=== PATIENT | female | born 1940 | race Caucasian/White ===

== ENCOUNTER 2023-01-28 07:13 | Day surgery (SDC) | payer MEDICARE ==
[2023-01-26 09:40] LABS: BASOPHILS % (AUTO) 0.6 % (0-1); EOSINOPHILS # (AUTO) 0.1 X10'3 (0-0.9); EOSINOPHILS % (AUTO) 1.4 % (0-6); HEMATOCRIT 41.8 % (35.0-45.0); HEMOGLOBIN 13.9 g/dl (12.0-16.0); LYMPHOCYTES # (AUTO) 1.8 X10'3 (1.1-4.8); LYMPHOCYTES % (AUTO) 23.9 % (21-51); MEAN CORPUSCULAR HEMOGLOBIN 30.7 PG (27.0-31.0); MEAN CORPUSCULAR HGB CONC 33.3 g/dL (33.0-36.5); MEAN PLATELET VOLUME 7.9 FL (7.4-10.4); MONOCYTES # (AUTO) 0.8 X10'3 (0-0.9); MONOCYTES % (AUTO) 10.2 % (2-12); NEUTROPHILS # (AUTO) 4.8 X10'3 (1.8-7.7); NEUTROPHILS % (AUTO) 63.9 % (42-75); PLATELET COUNT 250 X10'3 (140-440); RED BLOOD COUNT 4.54 X10'6 (4.20-5.60); RED CELL DISTRIBUTION WIDTH 13.8 % (11.5-14.5); WHITE BLOOD COUNT 7.5 X10'3 (4.5-11.0)
[2023-01-26 09:48] LABS: ANION GAP 9 (8-16); BLOOD UREA NITROGEN 16 MG/DL (7-18); BUN/CREATININE RATIO 22.5 (6.6-38.0); CALCIUM 9.3 MG/DL (8.5-10.1); CHLORIDE 101 MMOL/L (99-107); CREATININE 0.71 MG/DL (0.40-0.90); GLUCOSE 109 MG/DL (70-104); POTASSIUM 4.2 MMOL/L (3.5-5.1); SODIUM 138 MMOL/L (135-145); eGFR 79 ML/MIN
[2023-01-26 09:58] LABS: APTT 39 SECONDS (22-32)
[2023-01-28] VITALS (13 sets, daily range): BP systolic 86–134; BP diastolic 46–77
[~2023-01-28] VITALS: Ht 167.6 cm; Wt 96.6 kg
[2023-01-28] MEDS ORDERED: diphenhydrAMINE 25mg capsule PO PRN (07:35)
[2023-01-28] MEDS ORDERED: normal saline 1,000 ML IV SCH (07:35)
[2023-01-28] MEDS ORDERED: LORazepam 0.5 MG tablet PO PRN (07:35)
[2023-01-28] MEDS ORDERED: ZOLP-240 (07:42)
[2023-01-28] MEDS ORDERED: WARF-65 PO (07:42)
[2023-01-28] MEDS ORDERED: MONT-40 PO (07:42)
[2023-01-28] MEDS ORDERED: OMEG-5 PO (07:42)
[2023-01-28] MEDS ORDERED: METO25TA6 PO (07:42)
[2023-01-28] MEDS ORDERED: FAMO20TA8 PO (07:42)
[2023-01-28] MEDS ORDERED: ROSU10TA28 PO (07:42)
[2023-01-28] MEDS ORDERED: AREDS (07:47)
[2023-01-28] MEDS ORDERED: MECL-159 PO (07:47)
[2023-01-28] MEDS ORDERED: LORA10CA PO (07:47)
[2023-01-28] MEDS ORDERED: MECO10005 (07:47)
[2023-01-28] MEDS ORDERED: CHOL100025 PO (07:47)
[2023-01-28] MEDS ORDERED: FLEC100T PO (07:50)
[2023-01-28] MEDS ORDERED: FURO20TA4 PO (07:50)
[2023-01-28] MEDS ORDERED: fentaNYL/PF 50MCG/1 ML 2ML syringe ONE (09:17)
[2023-01-28] MEDS ORDERED: verapamil 2.5 mg/ml inj IV ONE (09:17)
[2023-01-28] MEDS ORDERED: nitroGLYCERIN-Tridil 50MG/D5W 250 ML IV ONE (09:17)
[2023-01-28] MEDS ORDERED: heparin 1,000unit/ml 10ml vial 10 ML ONE (09:17)
[2023-01-28] MEDS ORDERED: midazolam 1 mg/ML 2ml injection ONE (09:17)
[2023-01-28] MEDS ORDERED: LIDOcaine 1% (10mg/ml) 2ml vial ONE (09:17)
[2023-01-28] MEDS ORDERED: iohexol 350MG/ML 100ml bottle IV ONE (09:18)
[2023-01-28] MEDS ORDERED: iohexol 350 MG/ML 50ML vial IV ONE (09:18)
[2023-01-28] MEDS ORDERED: proCHLORperazine 10 MG/2 ml inj ONE (09:19)
[2023-01-28] MEDS ORDERED: normal saline 1000ml 1,000 ML IV SCH (10:45)
[2023-01-29] MEDS ORDERED: FLU VACC QS2022-23(6MOS UP)/PF 60 MCG/0.5 ML SYRINGE IMVAC ONE (12:00)
== END 2023-01-28 15:00 | disposition home or self-care (01) ==
LOC: SSTAY O 07:13
PROVIDERS: ATTEND Internal Medicine Cardiovascular Disease
DX: R94.39 Abnormal result of other cardiovascular function study (principal); I25.10 Atherosclerotic heart disease of native coronary artery without angina pectoris; I48.19 Other persistent atrial fibrillation; I08.1 Rheumatic disorders of both mitral and tricuspid valves; I47.1 Supraventricular tachycardia; E78.5 Hyperlipidemia, unspecified; K21.9 Gastro-esophageal reflux disease without esophagitis; G47.00 Insomnia, unspecified; I27.29 Other secondary pulmonary hypertension; I10 Essential (primary) hypertension; E66.9 Obesity, unspecified; Z68.34 Body mass index [BMI] 34.0-34.9, adult; Z85.828 Personal history of other malignant neoplasm of skin; Z86.718 Personal history of other venous thrombosis and embolism; Z79.01 Long term (current) use of anticoagulants; Z79.899 Other long term (current) drug therapy; Z98.890 Other specified postprocedural states; Z96.659 Presence of unspecified artificial knee joint; Z90.710 Acquired absence of both cervix and uterus; Z86.711 Personal history of pulmonary embolism; Z90.721 Acquired absence of ovaries, unilateral; Z72.89 Other problems related to lifestyle; Z88.5 Allergy status to narcotic agent; Z82.49 Family history of ischemic heart disease and other diseases of the circulatory system
CPT/HCPCS: 36415; 80048; 85025; 85610; 85730; 92960; 93005; 93458; 99152; C1769; C1894; J0780; J1644; J2250; J3010; J3490; J7030; Q0163; Q9967; 99153; A6258; A6402; C1725

== ENCOUNTER 2023-02-05 12:18 | Emergency (ER) | payer MEDICARE ==
[~2023-02-05] VITALS: Ht 167.6 cm; Wt 96.4 kg
[~2023-02-05 12:18] MED LIST: AREDS; CHOL100025 PO; FAMO20TA8 PO; FLEC100T PO; FURO20TA4 PO; LORA10CA PO; MECL-159 PO; MECO10005; METO25TA6 PO; MONT-40 PO; OMEG-5 PO; ROSU10TA28 PO; WARF-65 PO; ZOLP-240
[2023-02-05 12:52] LABS: BASOPHILS % (AUTO) 0.5 % (0-1); EOSINOPHILS # (AUTO) 0.1 X10'3 (0-0.9); EOSINOPHILS % (AUTO) 0.9 % (0-6); HEMATOCRIT 37.6 % (35.0-45.0); HEMOGLOBIN 12.2 g/dl (12.0-16.0); LYMPHOCYTES # (AUTO) 1.6 X10'3 (1.1-4.8); LYMPHOCYTES % (AUTO) 18.6 % (21-51); MEAN CORPUSCULAR HEMOGLOBIN 30.1 PG (27.0-31.0); MEAN CORPUSCULAR HGB CONC 32.5 g/dL (33.0-36.5); MEAN CORPUSCULAR VOLUME 92.6 FL (78-98); MEAN PLATELET VOLUME 8.2 FL (7.4-10.4); MONOCYTES # (AUTO) 0.8 X10'3 (0-0.9); MONOCYTES % (AUTO) 9.8 % (2-12); NEUTROPHILS # (AUTO) 5.9 X10'3 (1.8-7.7); NEUTROPHILS % (AUTO) 70.2 % (42-75); PLATELET COUNT 216 X10'3 (140-440); RED BLOOD COUNT 4.06 X10'6 (4.20-5.60); RED CELL DISTRIBUTION WIDTH 13.3 % (11.5-14.5); WHITE BLOOD COUNT 8.5 X10'3 (4.5-11.0)
[2023-02-05 12:53] LABS: ALANINE AMINOTRANSFERASE 40 U/L (12-78); ALBUMIN 3.7 G/DL (3.4-5.0); ALBUMIN/GLOBULIN RATIO 1.1 (1.1-1.5); ALKALINE PHOSPHATASE 63 IU/L (46-116); ANION GAP 9 (8-16); ASPARTATE AMINO TRANSFERASE 34 U/L (10-37); BILIRUBIN,TOTAL 0.4 MG/DL (0.1-1.0); BLOOD UREA NITROGEN 15 MG/DL (7-18); BUN/CREATININE RATIO 18.8 (10.0-20.0); CALCIUM 9.2 MG/DL (8.5-10.1); CHLORIDE 101 MMOL/L (99-107); GLUCOSE 119 MG/DL (70-104); POTASSIUM 4.5 MMOL/L (3.5-5.1); SODIUM 137 MMOL/L (135-145); TOTAL CARBON DIOXIDE 27.1 MMOL/L (24-32); TOTAL PROTEIN 7.1 G/DL (6.4-8.2); eGFR 69 ML/MIN
[2023-02-05 12:59] LABS: MAGNESIUM 1.9 MG/DL (1.5-2.4)
[2023-02-05] MEDS ORDERED: furosemide 10 MG/1 ML 10ml inj IV ONE (14:50)
[2023-02-05] MEDS ORDERED: furosemide 20MG tablet PO ONE (15:00)
--- NOTE | 2023-02-05 15:27 | NUR ---
PT ASSESSED BY MANAGER CATH LAB [id number].
[2023-02-05 15:32] VITALS: BP 142/86
== END 2023-02-05 15:35 | disposition home or self-care (01) ==
LOC: ER 12:19
DX: I50.23 Acute on chronic systolic (congestive) heart failure (principal); Z88.5 Allergy status to narcotic agent; Z79.899 Other long term (current) drug therapy; Z79.1 Long term (current) use of non-steroidal anti-inflammatories (NSAID); Z79.2 Long term (current) use of antibiotics
CPT/HCPCS: 36415; 71045; 80053; 83735; 83880; 84484; 85025; 93005; 99285

== ENCOUNTER 2023-02-16 07:36 | Emergency (ER) | payer MEDICARE ==
[~2023-02-16] VITALS: Ht 167.6 cm; Wt 97.3 kg
[2023-02-16 07:39] VITALS: BP 165/54
[2023-02-16] MEDS ORDERED: CYCL-1 PO (10:39)
== END 2023-02-16 10:49 | disposition home or self-care (01) ==
LOC: ER 07:37
DX: R25.2 Cramp and spasm (principal)
CPT/HCPCS: 93971; 99284

== ENCOUNTER 2024-11-03 06:01 | Day surgery (SDC) | payer MEDICARE ==
[2024-11-02 13:57] LABS: BASOPHILS % (AUTO) 0.5 % (0-1); EOSINOPHILS # (AUTO) 0.1 X10'3 (0-0.9); EOSINOPHILS % (AUTO) 1.2 % (0-6); HEMATOCRIT 40.8 % (35.0-45.0); HEMOGLOBIN 13.9 g/dl (12.0-16.0); LYMPHOCYTES # (AUTO) 2.4 X10'3 (1.1-4.8); LYMPHOCYTES % (AUTO) 28.1 % (21-51); MEAN CORPUSCULAR HGB CONC 34.2 g/dL (33.0-36.5); MEAN CORPUSCULAR VOLUME 93.5 FL (78-98); MEAN PLATELET VOLUME 8.1 FL (7.4-10.4); MONOCYTES % (AUTO) 11.6 % (2-12); NEUTROPHILS % (AUTO) 58.6 % (42-75); PLATELET COUNT 225 X10'3 (140-440); RED BLOOD COUNT 4.36 X10'6 (4.20-5.60); RED CELL DISTRIBUTION WIDTH 13.3 % (11.5-14.5); WHITE BLOOD COUNT 8.5 X10'3 (4.5-11.0)
[2024-11-02 14:13] LABS: ALBUMIN 3.7 G/DL (3.4-5.0); ANION GAP 9 (8-16); BLOOD UREA NITROGEN 16 MG/DL (7-18); BUN/CREATININE RATIO 22.2 (10.0-20.0); CALCIUM 9.1 MG/DL (8.5-10.1); CHLORIDE 100 MMOL/L (99-107); CREATININE 0.72 MG/DL (0.40-0.90); GLUCOSE 97 MG/DL (70-104); POTASSIUM 4.1 MMOL/L (3.5-5.1); SODIUM 138 MMOL/L (135-145); TOTAL CARBON DIOXIDE 28.8 MMOL/L (24-32); eGFR 78 ML/MIN
[2024-11-02 14:18] LABS: APTT 27 SECONDS (22-32); INR 1.1 INR; PROTHROMBIN TIME 11.9 SECONDS (9.0-12.0)
[~2024-11-03] VITALS: Ht 167.6 cm; Wt 98.7 kg
[2024-11-03] VITALS (13 sets, daily range): BP systolic 119–168; BP diastolic 43–69; PULSE 60–67; RESP 14–16; TEMP 98.2; O2SAT 91–96
[~2024-11-03 06:01] MED LIST changes: +CYCL-1 PO; -MECL-159 PO; +MECL-302 PO; -MECO10005; +MECO10005 PO; -ROSU10TA28 PO; +ROSU10TA72 PO
[2024-11-03] MEDS ORDERED: ceFAZolin 2gm in dextrose, iso 50 ML IV ONE (06:30)
[2024-11-03] MEDS ORDERED: CYCL-394 PO (06:50)
[2024-11-03] MEDS ORDERED: ZOLP10TA PO (06:50)
[2024-11-03] MEDS ORDERED: VIT1CAPS9 PO (06:50)
[2024-11-03] MEDS ORDERED: LORA-269 PO (06:50)
[2024-11-03] MEDS ORDERED: ceFAZolin 1000mg inj ONE (07:50)
[2024-11-03] MEDS ORDERED: LIDOcaine 1% W/epiNEPHrine 1:100,000 20ml vial ONE (07:50)
[2024-11-03] MEDS ORDERED: fentaNYL/PF 50MCG/1 ML 2ML syringe ONE (07:55)
[2024-11-03] MEDS ORDERED: midazolam 1 mg/ML 2ml injection ONE (07:55)
[2024-11-03] MEDS ORDERED: diphenhydrAMINE 50 mg/ml inj ONE (08:42)
[2024-11-03] MEDS ORDERED: HYDROmorphone 1 mg/ml syringe ONE (09:05)
[2024-11-03] MEDS ORDERED: normal saline 1000ml 1,000 ML IV SCH (10:40)
[2024-11-03] MEDS ORDERED: HYDROcodone/acetaminophen 5mg/325mg tablet PO PRN (10:45)
[2024-11-03] MEDS ORDERED: CEPH-585 PO (10:52)
[2024-11-03] MEDS: VANCOMYCIN 1GM 200ML H20 (PEG) 200 ML IV ONE (11:22)
[2024-11-03] MEDS: HYDROcodone/acetaminophen 10/325mg tab PO PRN (13:36)
== END 2024-11-03 15:00 | disposition home or self-care (01) ==
LOC: SSTAY O 06:01
PROVIDERS: ATTEND Internal Medicine Cardiovascular Disease
DX: I49.5 Sick sinus syndrome (principal); I10 Essential (primary) hypertension; I25.10 Atherosclerotic heart disease of native coronary artery without angina pectoris; I48.0 Paroxysmal atrial fibrillation; E78.5 Hyperlipidemia, unspecified; E66.9 Obesity, unspecified; K21.9 Gastro-esophageal reflux disease without esophagitis; I27.29 Other secondary pulmonary hypertension; G47.00 Insomnia, unspecified; Z86.718 Personal history of other venous thrombosis and embolism; Z85.828 Personal history of other malignant neoplasm of skin; Z79.01 Long term (current) use of anticoagulants; Z79.899 Other long term (current) drug therapy; Z90.710 Acquired absence of both cervix and uterus; Z90.721 Acquired absence of ovaries, unilateral; Z96.651 Presence of right artificial knee joint; Z98.890 Other specified postprocedural states; Z68.35 Body mass index [BMI] 35.0-35.9, adult; Z88.5 Allergy status to narcotic agent; Z82.49 Family history of ischemic heart disease and other diseases of the circulatory system
CPT/HCPCS: 33208; 36415; 71046; 80048; 85025; 85610; 85730; 93005; 99152; 99153; A4565; A4615; A6402; C1785; C1898; J0690; J1171; J1200; J2250; J3010; J3372; J3490; J7030; Z7610; A6449